=== PATIENT | female | born 1975 | race Caucasian/White ===

== ENCOUNTER 2018-04-25 11:49 | Emergency (ER) | payer OTHER, SELFPAY ==
[2018-04-25 11:52] VITALS: BP 124/83; PULSE 76; RESP 16; TEMP 36.7; O2SAT 100
--- NOTE | 2018-04-25 12:55 | W.ED.GENAD ---
Discharge Plan Disposition Patient Disposition: HOME Condition: Stable Discharge Details Chief Complaint: RespSymp Clinical Impression: Exacerbation of reactive airway disease Primary Care Provider: ULISA,LOCAL ED Provider: Hyacinth Boggs Home Meds and New Rx's Prescriptions: New albuterol sulfate 90 mcg/actuation HFA aerosol inhaler 2 puff IH QID PRN (Reason: shortness of breath or wheezing) Qty: 8 RF: 3 Continue fexofenadine [Barb] 180 MG tablet 180 mg PO DAILY RF: 0 PROZAC 20 MG capsule 20 mg PO DAILY Qty: 90 RF: 4 No Action doxycycline hyclate 100 mg tablet 100 mg PO BID Qty: 14 RF: 0 Discharge Instructions Instructions: Asthma (ED), Upper Respiratory Infection (ED), Reactive Airways Disease (ED) Additional Instructions: Please return immediately to the emergency department if you develop any new or worsening symptoms or if you become otherwise concerned. It is extremely important that you make an appointment to be seen by your primary care doctor within the next 1-2 weeks and follow-up this visit. Discharge Data Discharge Date/Time-TO BE ENTERED AT DEPARTURE: 04/25/18 14:03 Medical Decision Making Dora Delatorre is a 42 y/o woman with h/o RAD in the past presenting to the emergency department with 10 days of URI symptoms and mild chest tightness today. On exam Pt is very well and non-toxic appearing. Normal WOB. Slight wheeze throughout. Pt notes that she used to have an inhaler years ago, but has not needed it since then. Symptoms now feel like RAD she had in the past. Concern for likely viral URI with RAD component, possible PNA. Plan for duoneb, CXR given length of cough. Pt declines CXR duoneb, Pt seen in R 2/2 ED volume and acuity, does not want to wait for further treatment/eval. She agrees to inhaler in ED. Pt used inhaler with significant improvement in symptoms, she reports no further chest tightness. Plan for RX inh. Lengthy discussion with Pt re: RTED precautions and importance of outpt f/u with PCP. She is amenable to the plan. HPI General Mode of arrival: ambulatory. Date/Time Provider Initiated Documentation: 04/25/18 12:55. Limitations to Documentation: no limitations. Information obtained by: patient, RN notes reviewed and old records reviewed. HPI Narrative: Dora Delatorre is a 42 y/o woman with h/o RAD presenting to the emergency department with cough, SOB. Pt reports that she has been having varied and intermittent symptoms over the past 10 days, including nasal congestion, sinus pain, sore throat, subjective fever, and dry cough. Today she is experiencing nasal congestion, cough, and she also reports that today her chest seemed tight when taking deep breaths. No pain, no fever today, no n/v/d. No other recent illness. No recent travel. Has been eating and drinking normally. Related Data Home Medications Medication Instructions Recorded Confirmed fexofenadine [Barb] 180 mg PO DAILY tab-cap 03/08/13 04/28/18 albuterol sulfate 2 puff IH QID PRN #8 gm 04/25/18 04/28/18 doxycycline hyclate 100 mg PO BID #14 tab 04/28/18 Previous Rx's Medication Instructions Recorded albuterol sulfate 2 puff IH QID PRN #8 gm 04/25/18 doxycycline hyclate 100 mg PO BID #14 tab 04/28/18 Allergies Allergy/AdvReac Type Severity Reaction Status Date / Time codeine AdvReac Intermediate PALPITATION Unverified 04/28/18 11:14 S General Stated Complaint: RespSymp PRADEEP: 3 Review of Systems Review of Systems Constitutional: denies fevers Eyes: denies eye pain ENT: denies facial pain, dental pain, sore throat, reports nasal congestion Cardiovascular: denies chest pain, edema Respiratory: reports SOB, cough GI: denies abdominal pain, vomiting, diarrhea : denies flank pain MSK: denies back pain, neck pain, arthralgias, myalgias Skin: denies rash Neuro: denies headaches, lightheadedness, weakness [facility] Social History Smoking/Tobacco Use Status: Never Exam Narrative Exam Narrative: Constitutional: well and [id number], pleasant, conversing normally HENT: head atraumatic, normocephalic normal inspection, mucous membranes moist, normal oropharynx Eyes: conjunctiva normal, sclera normal, pupils 3mm b/l Neck: no stridor, normal ROM, trachea midline Chest: normal inspection Resp: normal work of breathing, slight wheeze b/l lung [facility] Cardio: normal rate, normal rhythm, no murmur appreciated Back: normal inspection, no rash Skin: warm, dry, normal color, no rash Neuro: alert, not altered, grossly non-focal, normal tone Ext: no edema, no posterior calf TTP Psych: normal mood, normal affect, normal behavior Course Vital Signs Temperature 36.7 C 04/25/18 11:52 Pulse 76 04/25/18 11:52 Respiratory Rate 16 04/25/18 11:52 Blood Pressure 124/83 04/25/18 11:52 Pulse Oximetry 100 04/25/18 11:52 Temperature 36.7 C 04/25/18 11:52 Temperature Source Skin 04/25/18 11:52 Pulse 76 04/25/18 11:52 Respiratory Rate 16 04/25/18 11:52 Respiratory Effort 04/25/18 11:58 Respiratory Depth Normal 04/25/18 11:58 Blood Pressure 124/83 04/25/18 11:52 Pulse Oximetry 100 04/25/18 11:52 Oxygen Delivery Method Room Air 04/25/18 11:52 Oxygen Flow Rate 0 04/25/18 11:52 Pain Level 0 04/25/18 11:52 Lab/Test Results Lab/Test Results: POC- Test(urine) Negative
[2018-04-25] MEDS: Albuterol HFA 8 GM 60 PUFF INH IH (13:45)
[2018-04-25] MEDS: Inhaler, Assist Device 1 EACH MC (13:46)
[2018-04-25 14:04] VITALS: BP 124/83; PULSE 76; RESP 16; TEMP 36.7; O2SAT 100
--- NOTE | 2018-05-08 14:01 | ED.GENADUL_ITS ---
Discharge Plan Disposition Patient Disposition: HOME Condition: Stable Discharge Details Chief Complaint: RespSymp Clinical Impression: Exacerbation of reactive airway disease Primary Care Provider: LUISA,LOCAL ED Provider: Hyacinth Boggs Home Meds and New Rx's Prescriptions: New albuterol sulfate 90 mcg/actuation HFA aerosol inhaler 2 puff IH QID PRN (Reason: shortness of breath or wheezing) Qty: 8 RF: 3 Continue fexofenadine [Barb] 180 MG tablet 180 mg PO DAILY RF: 0 PROZAC 20 MG capsule 20 mg PO DAILY Qty: 90 RF: 4 No Action doxycycline hyclate 100 mg tablet 100 mg PO BID Qty: 14 RF: 0 Discharge Instructions Instructions: Asthma (ED), Upper Respiratory Infection (ED), Reactive Airways Disease (ED) Additional Instructions: Please return immediately to the emergency department if you develop any new or worsening symptoms or if you become otherwise concerned. It is extremely important that you make an appointment to be seen by your primary care doctor within the next 1-2 weeks and follow-up this visit. Discharge Data Discharge Date/Time-TO BE ENTERED AT DEPARTURE: 04/25/18 14:03 Medical Decision Making Dora Delatorre is a 42 y/o woman with h/o RAD in the past presenting to the emergency department with 10 days of URI symptoms and mild chest tightness today. On exam Pt is very well and non-toxic appearing. Normal WOB. Slight wheeze throughout. Pt notes that she used to have an inhaler years ago, but has not needed it since then. Symptoms now feel like RAD she had in the past. Concern for likely viral URI with RAD component, possible PNA. Plan for duoneb, CXR given length of cough. Pt declines CXR duoneb, Pt seen in R 2/2 ED volume and acuity, does not want to wait for further treatment/eval. She agrees to inhaler in ED. Pt used inhaler with significant improvement in symptoms, she reports no further chest tightness. Plan for RX inh. Lengthy discussion with Pt re: RTED precautions and importance of outpt f/u with PCP. She is amenable to the plan. HPI General Mode of arrival: ambulatory . Date/Time Provider Initiated Documentation: 04/25/18 12:55 . Limitations to Documentation: no limitations . Information obtained by: patient, RN notes reviewed and old records reviewed . HPI Narrative: Dora Delatorre is a 42 y/o woman with h/o RAD presenting to the emergency department with cough, SOB. Pt reports that she has been having varied and intermittent symptoms over the past 10 days, including nasal congestion, sinus pain, sore throat, subjective fever, and dry cough. Today she is experiencing nasal congestion, cough, and she also reports that today her chest seemed tight when taking deep breaths. No pain, no fever today, no n/v/d. No other recent illness. No recent travel. Has been eating and drinking normally. Related Data Home Medications Medication Instructions Recorded Confirmed fexofenadine [Barb] 180 mg PO DAILY tab-cap 03/08/13 04/28/18 albuterol sulfate 2 puff IH QID PRN #8 gm 04/25/18 04/28/18 doxycycline hyclate 100 mg PO BID #14 tab 04/28/18 Previous Rx's Medication Instructions Recorded albuterol sulfate 2 puff IH QID PRN #8 gm 04/25/18 doxycycline hyclate 100 mg PO BID #14 tab 04/28/18 Allergies Allergy/AdvReac Type Severity Reaction Status Date / Time codeine AdvReac Intermediate PALPITATION Unverified 04/28/18 11:14 S General Stated Complaint: RespSymp PRADEEP: 3 Review of Systems Review of Systems Constitutional: denies fevers Eyes: denies eye pain ENT: denies facial pain, dental pain, sore throat, reports nasal congestion Cardiovascular: denies chest pain, edema Respiratory: reports SOB, cough GI: denies abdominal pain, vomiting, diarrhea : denies flank pain MSK: denies back pain, neck pain, arthralgias, myalgias Skin: denies rash Neuro: denies headaches, lightheadedness, weakness [facility] Social History Smoking/Tobacco Use Status: Never Exam Narrative Exam Narrative: Constitutional: well and [id number], pleasant, conversing normally HENT: head atraumatic, normocephalic normal inspection, mucous membranes moist, normal oropharynx Eyes: conjunctiva normal, sclera normal, pupils 3mm b/l Neck: no stridor, normal ROM, trachea midline Chest: normal inspection Resp: normal work of breathing, slight wheeze b/l lung [facility] Cardio: normal rate, normal rhythm, no murmur appreciated Back: normal inspection, no rash Skin: warm, dry, normal color, no rash Neuro: alert, not altered, grossly non-focal, normal tone Ext: no edema, no posterior calf TTP Psych: normal mood, normal affect, normal behavior Course Vital Signs Temperature 36.7 C 04/25/18 11:52 Pulse 76 04/25/18 11:52 Respiratory Rate 16 04/25/18 11:52 Blood Pressure 124/83 04/25/18 11:52 Pulse Oximetry 100 04/25/18 11:52 Temperature 36.7 C 04/25/18 11:52 Temperature Source Skin 04/25/18 11:52 Pulse 76 04/25/18 11:52 Respiratory Rate 16 04/25/18 11:52 Respiratory Effort 04/25/18 11:58 Respiratory Depth Normal 04/25/18 11:58 Blood Pressure 124/83 04/25/18 11:52 Pulse Oximetry 100 04/25/18 11:52 Oxygen Delivery Method Room Air 04/25/18 11:52 Oxygen Flow Rate 0 04/25/18 11:52 Pain Level 0 04/25/18 11:52 Lab/Test Results Lab/Test Results: POC- Test(urine) Negative
== END 2018-04-25 14:03 | disposition home or self-care (01) ==
PROVIDERS: Emergency Provider Student in an Organized Health Care Education/Training Program
DX: J45.901 Unspecified asthma with (acute) exacerbation (principal)
CPT/HCPCS: 81025; 99283

== ENCOUNTER 2018-04-28 11:04 | Emergency (ER) | payer OTHER, SELFPAY ==
[2018-04-28 11:06] VITALS: BP 134/80; PULSE 81; RESP 16; TEMP 36.7; O2SAT 99
--- NOTE | 2018-04-28 11:12 | W.ED.GENAD ---
Discharge Plan Disposition Patient Disposition: HOME Condition: Good Discharge Details Chief Complaint: RespSymp Clinical Impression: Cough Primary Care Provider: LUISA,LOCAL ED Provider: Mark Velez Home Meds and New Rx's Prescriptions: New doxycycline hyclate 100 mg tablet 100 mg PO BID Qty: 14 RF: 0 Continue fexofenadine [Barb] 180 MG tablet 180 mg PO DAILY RF: 0 PROZAC 20 MG capsule 20 mg PO DAILY Qty: 90 RF: 4 albuterol sulfate 90 mcg/actuation HFA aerosol inhaler 2 puff IH QID PRN (Reason: shortness of breath or wheezing) Qty: 8 RF: 3 Discharge Instructions Instructions: Acute Cough (ED) Discharge Data Discharge Physician: Mark Velez Medical Decision Making 42 yo female who denies chronic med problems [place] [facility] [place]. Was seen here on Monday and started on an inhaler for likely uri. STates she felt better yesterday but continues to cough and have sore throat and felt worse today so came here. Denies fevers, sob, recent travel. she is speaking in full sentences, laughing during exam in no distress with clear lungs and no murmurs, denies smoking or ivdu. She likely has uri but given length of time with symptoms will cover for early cap. ADvised f/u with pcp this week and return precautions given Differential Diagnosis uri, bronchitis, cap HPI General Mode of arrival: ambulatory. Date/Time Provider Initiated Documentation: 04/28/18 11:12. Limitations to Documentation: no limitations. Information obtained by: patient. History of Present Illness 42 year old F presents to the emergency department with the chief complaint of cough, described as moderate, with intensity rated at 5. Patient started experiencing this day(s) (5) No relieving factors improve symptom(s), No exacerbating factors reported . Patient notes other (sore throat). Patient did receive the following treatments prior to arrival, none Related Data Home Medications Medication Instructions Recorded Confirmed fexofenadine [Barb] 180 mg PO DAILY tab-cap 03/08/13 04/28/18 albuterol sulfate 2 puff IH QID PRN #8 gm 04/25/18 04/28/18 doxycycline hyclate 100 mg PO BID #14 tab 04/28/18 Previous Rx's Medication Instructions Recorded albuterol sulfate 2 puff IH QID PRN #8 gm 04/25/18 doxycycline hyclate 100 mg PO BID #14 tab 04/28/18 Allergies Allergy/AdvReac Type Severity Reaction Status Date / Time codeine AdvReac Intermediate PALPITATION Unverified 04/28/18 11:14 S General Stated Complaint: RespSymp PRADEEP: 3 Review of Systems Review of Systems All systems reviewed & are unremarkable except as noted in HPI and below Constitutional Denies fever(s) and Denies weakness Eyes Denies loss of vision ENT Denies change in voice Cardiovascular Denies chest pain and Denies dyspnea Respiratory Denies dyspnea Gastrointestinal Denies abdominal pain, Denies nausea and Denies vomiting Genitourinary Denies dysuria Musculoskeletal Denies joint swelling Integumentary/Breasts Denies rash Neurologic Denies loss of vision and Denies weakness Psychiatric Denies depression Allergic/Immunologic Reports urticaria PFSH Social History Smoking/Tobacco Use Status: Never Exam Const General: no acute distress Orientation: alert HENMT Head: normal to inspection Ears: external ears normal General nose exam: external nose normal Mouth: moist mucous membranes Eyes General: appearance normal, both eyes and all related structures Neck Neck: normal visual inspection Resp Effort & Inspection: normal respiratory effort and able to speak in complete sentences Cardio Rate: regular rate Skin General skin exam: no rashes or lesions noted Neuro General: alert and oriented x3 Extrem General: normal to inspection Psych Mental Status: mental status grossly normal Course Vital Signs Temperature 36.7 C 04/28/18 11:06 Pulse 81 04/28/18 11:06 Respiratory Rate 16 04/28/18 11:06 Blood Pressure 134/80 04/28/18 11:06 Pulse Oximetry 99 04/28/18 11:06 Temperature 36.7 C 04/28/18 11:06 Temperature Source Skin 04/28/18 11:06 Pulse 81 04/28/18 11:06 Respiratory Rate 16 04/28/18 11:06 Blood Pressure 134/80 04/28/18 11:06 Pulse Oximetry 99 04/28/18 11:06 Oxygen Delivery Method Room Air 04/28/18 11:06 Oxygen Flow Rate 0 04/28/18 11:06 Pain Level 6 04/28/18 11:06
== END 2018-04-28 11:30 | disposition home or self-care (01) ==
PROVIDERS: Emergency Provider Emergency Medicine
DX: R05 Cough (principal)
CPT/HCPCS: 99283